=== PATIENT | male | born 1965 | race Caucasian/White ===

== ENCOUNTER 2017-04-23 14:50 | Emergency (ER) | payer OTHER ==
--- NOTE | 2017-05-03 14:22 | ER ---
ADMIT: 04/23/2017 RM/LOC: ER [facility] MR#: [id number] [facility] [address] [place] [id number] [address]TE[address] [place] [address] Emergency Room Report SEX: M AGE: 51 : 1965 DATE: 04/23/2017 ADDENDUM: CHIEF COMPLAINT: Red swollen hand. HISTORY OF PRESENT ILLNESS: This is a 51-year-old, who has a couple scratches on his hand, one is dog scratch, the other is an abrasion on his thumb. His hand started becoming red and swollen the last 2 days, worse this morning when he woke up. COURSE IN THE EMERGENCY ROOM: I did a CBC, CMP, lactic acid, and procalcitonin. Overall findings, his procalcitonin was less than 0.05. His lactic acid was 1.6. CMP was normal except for glucose of 380, bilirubin of 3, total protein 5.9, albumin 2.8, and alkaline phosphatase is 142. CBC was normal except for platelets of 42. I did speak with his primary care provider, Chiara De Jesus up in [place]. She is going to follow up on this patient. I am starting him on metformin from 500 mg b.i.d., dispensing 30; Keflex 50 mg 1 tab q.i.d. x7 days; and Bactrim DS 2 tabs b.i.d. x7 days. I told him it is very important that he follows up regarding the cellulitis that it could become worse and he may need to be hospitalized, but at this time, we are going to try oral medications initially. CLINICAL IMPRESSION: 1. Cellulitis to right hand. 2. Hyperglycemia. 3. Thrombocytopenia. DISPOSITION: Stable at discharge. Again, we will follow up this week. CLEMENTE Barry / iFliberto Salazar MD / modl JOB #: [id number] CC: Filiberto Salazar MD, Attending Physician UNKNOWN, Family Physician
== END 2017-04-23 17:30 | disposition home or self-care (01) ==
LOC: ER 14:50
DX: L03.113 Cellulitis of right upper limb (principal); S60.311A Abrasion of right thumb, initial encounter; D69.6 Thrombocytopenia, unspecified; R73.9 Hyperglycemia, unspecified; Z86.19 Personal history of other infectious and parasitic diseases; Z88.8 Allergy status to other drugs, medicaments and biological substances; Z79.899 Other long term (current) drug therapy; W54.8XXA Other contact with dog, initial encounter